=== PATIENT | male | born 1930 | race African-American/Black ===

== ENCOUNTER 2018-09-15 19:05 | Emergency (ER) | payer MEDICARE, MEDICAID ==
[~2018-09-15] VITALS: Ht 177.8 cm; Wt 64.0 kg
[2018-09-15] MEDS ORDERED: ACETAMINOPHEN WITH CODEINE 300/30MG TABLET PO STA (19:40)
[2018-09-15 21:04] LABS: CLARITY URINE CLEAR (CLEAR); COLOR URINE YELLOW (YELLOW); KETONES URINE NEGATIVE (NEGATIVE); LEUKOCYTE ESTERASE URINE NEGATIVE (NEGATIVE); NITRITE URINE NEGATIVE (NEGATIVE); OCCULT BLOOD URINE NEGATIVE (NEGATIVE); PROTEIN URINE NEGATIVE (NEGATIVE); SPECIFIC GRAVITY URINE 1.007 (1.005-1.030); UROBILINOGEN URINE 0.2 E.U./dL (0.2-1.0)
[2018-09-16] VITALS: BP 173/95
== END 2018-09-16 00:18 ==
LOC: ER 19:05
DX: R10.0 Acute abdomen (principal); G89.3 Neoplasm related pain (acute) (chronic); C61 Malignant neoplasm of prostate; C79.51 Secondary malignant neoplasm of bone; R07.89 Other chest pain; I10 Essential (primary) hypertension
CPT/HCPCS: 71045; 74176; 81003; 99284